=== PATIENT | female | born 1975 | race American Indian/Alaskan Native ===

== ENCOUNTER 2019-05-02 06:37 | Day surgery (SDC) | payer BC ==
[2019-05-02] MEDS ORDERED: ASPIRIN EC 325 MG TAB PO ONE (07:02)
[2019-05-02 07:53] LABS: Eosinophils # (Auto) 0.1 K/mm3 (0.0-0.4); Eosinophils % (Auto) 1.3 % (0.0-4.3); Monocytes # (Auto) 0.7 K/mm3 (0.0-0.8); Monocytes % (Auto) 12.2 % (0.0-7.3)
[2019-05-02 07:57] LABS: INR 1.02 (0.87-1.13)
[2019-05-02] MEDS ORDERED: SODIUM CHLORIDE 0.9% 500 ML 500 ML IV SCH (08:00)
[2019-05-02 08:01] LABS: Basophils % (Auto) 0.7 % (0.0-1.8); Hematocrit 32.1 % (30.3-42.9); Hemoglobin 10.2 gm/dl (10.1-14.3); Lymphocytes # (Auto) 1.9 K/mm3 (1.2-5.4); Lymphocytes % (Auto) 32.7 % (13.4-35.0); Mean Corpuscular HGB Conc 32 % (30-34); Mean Corpuscular Volume 81 fl (79-97); Platelet Count 423 K/mm3 (140-440); Red Blood Count 3.97 M/mm3 (3.65-5.03); Red Cell Distribution Width 18.9 % (13.2-15.2)
[2019-05-02 08:27] LABS: BUN/Creatinine Ratio 16; Blood Urea Nitrogen 8 mg/dL (7-17); Hemolysis Index 1
[2019-05-02] MEDS ORDERED: HEPARIN/NS 5000 UNIT/500ML 1,000 ML IR ONE (08:39)
[2019-05-02] MEDS ORDERED: HEPARIN 10,000 UNITS/10 ML VIAL ONE (08:39)
[2019-05-02] MEDS ORDERED: VERAPAMIL 5 MG/2 ML INJ ONE (08:40)
[2019-05-02] MEDS ORDERED: NITROGLYCERIN SYRINGE 0 ML ONE (08:40)
[2019-05-02] MEDS: MIDAZOLAM 2 MG/2 ML INJ ONE ×2 (10:53→10:59)
[2019-05-02] MEDS: fentaNYL 100 MCG/2 ML INJ ONE ×2 (10:53→10:57)
[2019-05-02] MEDS: LIDOCAINE (2%) 20 MG/1 ML VIAL 20 ML MDV INFILTRATI ONE ×2 (10:55→10:59)
[2019-05-02] MEDS ORDERED: traMADol 50 MG TAB PO PRN (11:42)
--- NOTE | 2019-05-02 11:44 | Discharge Summary ---
Short Stay Discharge Plan Weight Bearing Status: Partial Weight Bearing Diet: low fat, low cholesterol, low salt Wound: keep clean and dry Special Instructions: no heavy lifting (3 days) Follow up with: PRIMARY MD ANDREW [Primary Care Provider] - 7 Days BERNADETTE HICKMAN MD [Staff Physician] - 7 Days
[2019-05-02] MEDS ORDERED: SODIUM CHLORIDE 0.9% 1000 ML 1,000 ML IV SCH (11:45)
--- NOTE | 2019-05-02 11:49 | Cardiac Catherization Report ---
REASON FOR PROCEDURE: The patient is a 44-year-old woman with sleep apnea, on home CPAP, presents with progressive exertional dyspnea. The right and left heart catheterization was recommended. PROCEDURES: 1. Right heart catheterization. 2. Left heart catheterization. 3. Selective left and right coronary angiography. 4. Left ventricle angiography. 5. Sedation time, start 10:53, end 11:20. PROCEDURES: The patient was prepped and draped in a sterile fashion after informed consent. The right femoral artery and vein were both entered using the Seldinger technique. A 6-[place] sheath was placed in the artery and an 8-[place] sheath in the vein. A [place] catheter was then advanced to the pulmonary artery position. Cardiac output was measured by the thermodilution method. The pigtail catheter was then advanced into the left ventricle. Simultaneous left and right filling pressures were measured and recorded. The [place] catheter was then withdrawn and right heart pressures were also recorded on pullback. Left ventricular angiography was then performed, and the pigtail catheter was withdrawn across the aortic valve and transaortic gradient recorded. Finally, selective left and right coronary angiography was performed using #4 left and right [place] catheters. The catheters and the sheaths were removed, the arterial hemostasis was achieved using an Angio-Seal device and venous hemostasis achieved using manual compression. The patient was returned to the postprocedure unit in stable condition. There were no complications. FINDINGS: HEMODYNAMICS: Mean right atrial pressure was 12. Right ventricular pressure was 40/15. Pulmonary artery pressure 40/23. The mean pulmonary artery wedge pressure was 15. Left ventricular end-diastolic pressure was 15-18. Ascending aortic pressure was 126/80. There was no significant pressure gradient on pullback across the aortic valve. Cardiac output was 6.8 liters per minute. CORONARY ANGIOGRAPHY: Left main coronary artery was angiographically normal. Left anterior descending artery contained minimal irregularities in its proximal segment, otherwise this vessel and its diagonal branches were angiographically normal. The circumflex artery and its obtuse marginal branches were angiographically normal. The right coronary artery was a relatively small caliber vessel, contained mild narrowing in its proximal segment, associated with an acute bend, otherwise this vessel and its branches were also angiographically normal. There was normal left ventricular systolic function with ejection fraction 55-60%. CONCLUSION: 1. Mild increase in right and left heart filling pressures, mild pulmonary hypertension. 2. No significant coronary artery disease, essentially angiographically near normal coronary arteries. 3. Normal left ventricular systolic function, ejection fraction 55-60%. RECOMMENDATION: Risk factor modification and medical therapy. We will defer to the patient's pulmonary organizational effectiveness consultant for further assessment and management of the patient's chronic lung disease in the setting of complaints of dyspnea. JOB# [id number] CA/NTS
[2019-05-02 15:44] VITALS: BP 100/55
== END 2019-05-02 15:45 | disposition home or self-care (01) ==
LOC: CATHLABREC 06:37 → EDSTATUS 07:30 → CATHLABREC 15:45
PROVIDERS: ATTEND Internal Medicine Cardiovascular Disease
DX: R06.02 Shortness of breath (principal); G47.30 Sleep apnea, unspecified; D64.9 Anemia, unspecified; Z79.899 Other long term (current) drug therapy; Z87.891 Personal history of nicotine dependence; Z98.890 Other specified postprocedural states
CPT/HCPCS: 36415; 80048; 85025; 85610; 85730; 93005; 93010; 93306; 93460; 99156; 99157; C1760; C1894; J1644; J2250; J3010; J7040; Q9967